=== PATIENT | female | born 1975 | race Caucasian/White ===

== ENCOUNTER 2017-08-15 19:28 | Inpatient (IN) | payer OTHER ==
[~2017-08-15] VITALS: Ht 157.5 cm; Wt 127.3 kg
[2017-08-15] MEDS ORDERED: LAMO150T32 PO (20:03)
[2017-08-15] MEDS ORDERED: PANT40TA PO (20:03)
[2017-08-15] MEDS ORDERED: ONDA4TAB65 PO (20:03)
[2017-08-15] MEDS ORDERED: FLUO20CA35 PO (20:03)
[2017-08-15] MEDS ORDERED: PROP80TA2 PO (20:03)
[2017-08-15] MEDS ORDERED: LEVO75TA5 PO (20:03)
[2017-08-15] MEDS ORDERED: ENOX40IN SQ (20:03)
[2017-08-15] MEDS ORDERED: ASCO500T3 PO (20:03)
[2017-08-15] MEDS ORDERED: FERR325T5 PO (20:03)
[2017-08-15] MEDS ORDERED: QUET1TAB34 PO ×2 (20:03)
[2017-08-15 22:46] VITALS: BP 121/83; PULSE 79; TEMP 37; Ht 157.5 cm; Wt 127.3 kg
[2017-08-15] MEDS ORDERED: hydrOXYzine HCL 25 MG TAB PO PRN (23:00)
[2017-08-15] MEDS ORDERED: ENOXAPARIN 150 MG/1ML SYR SQ SCH (23:00)
[2017-08-15] MEDS ORDERED: ALUMINUM/MAGNESIUM SUSP 30 ML UDC PO PRN (23:00)
[2017-08-15] MEDS ORDERED: ACETAMINOPHEN 325 MG TAB PO PRN (23:00)
[2017-08-15] MEDS ORDERED: MAGNESIUM HYDROXIDE SUSP 30 ML UDC PO PRN (23:00)
[2017-08-15] MEDS ORDERED: SODIUM CHLORIDE 0.65% NA SOLN 45 ML (OCEAN) PRN (23:00)
[2017-08-15] MEDS ORDERED: ONDANSETRON 4 MG TAB PO PRN (23:00)
[2017-08-16] MEDS ORDERED: NURSING VERBAL MED ORDER ONE (00:15)
[2017-08-16] MEDS: ZOLPIDEM TARTRATE 10 MG TAB PO PRN ×2 (00:52→21:58)
[2017-08-16 07:02] VITALS: BP_SYST 111; BP_SYST 112; BP_DIAS 75; BP_DIAS 79; PULSE 87; PULSE 94; TEMP 36.9
[2017-08-16 07:21] LABS: PROTHROMBIN TIME (PATIENT) 10.5 SECONDS (9.0-12.0)
[2017-08-16 07:45] LABS: CREATININE 0.75 mg/dl (0.60-1.20)
[2017-08-16] MEDS: LORAZEPAM 0.5 MG TAB PO PRN ×2 (08:04→13:21)
[2017-08-16] MEDS: LEVOTHYROXINE 75 MCG TAB PO SCH (08:47)
[2017-08-16] MEDS: PROPRANOLOL HCL 80 MG TAB PO SCH (08:48)
[2017-08-16] MEDS: ASCORBIC ACID 500 MG TAB PO SCH ×3 (08:49→21:50)
[2017-08-16] MEDS ORDERED: FLUOXETINE HCL 20 MG CAP PO SCH (09:00)
[2017-08-16] MEDS: ENOXAPARIN 150 MG/1ML SYR SQ SCH ×2 (11:22→21:58)
[2017-08-16] MEDS ORDERED: ZOLP10TA6 PO (12:08)
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
[2017-08-16] MEDS: SUMATRIPTAN SUCCINATE 50 MG TAB PO PRN ×3 (13:25→15:15)
[2017-08-16] MEDS: FERROUS SULFATE 325 MG TAB PO SCH (21:49)
[2017-08-16] MEDS: QUETIAPINE FUMARATE 100 MG TAB PO SCH (21:50)
[2017-08-16] MEDS: PANTOprazole SOD 40 MG TAB PO SCH (21:50)
[2017-08-16] MEDS ORDERED: QUETIAPINE FUMARATE 100 MG TAB PO SCH (22:00)
[2017-08-17 06:51] VITALS: BP_SYST 115; BP_SYST 118; BP_DIAS 81; BP_DIAS 84; PULSE 73; PULSE 87; TEMP 36.8
[2017-08-17 07:17] LABS: HEMATOCRIT 39.2 % (37-47); MEAN CELL VOLUME 92.2 fL (80-100); MEAN CORPUSCULAR HEMOGLOBIN 30.6 pg (25-34); MEAN CORPUSCULAR HGB CONC 33.2 g/dl (32-36); MEAN PLATELET VOLUME 10.1 fL (7.4-10.4); PLATELET COUNT 182 K/uL (130-400); RED BLOOD COUNT 4.25 M/uL (4.2-5.4); WHITE BLOOD COUNT 5.28 K/uL (4.8-10.8)
[2017-08-17 07:54] LABS: CREATININE 0.75 mg/dl (0.60-1.20)
[2017-08-17] MEDS: LEVOTHYROXINE 75 MCG TAB PO SCH (08:26)
[2017-08-17] MEDS: LORAZEPAM 0.5 MG TAB PO PRN ×2 (08:28→13:50)
[2017-08-17] MEDS: PROPRANOLOL HCL 80 MG TAB PO SCH (08:46)
[2017-08-17] MEDS: ASCORBIC ACID 500 MG TAB PO SCH ×3 (08:47→21:30)
[2017-08-17] MEDS: FLUOXETINE HCL 10 MG CAP PO SCH (08:47)
[2017-08-17] MEDS: ENOXAPARIN 150 MG/1ML SYR SQ SCH ×2 (11:02→21:31)
--- NOTE | 2017-08-17 14:05 | Psychiatric Progress Notes ---
Progress Note Date of Service Aug 17, 2017. Interval History 42-year-old white female with a history of mood disorder (she reports a history of bipolar, but does not endorse symptoms consistent with eamon), anxiety, prescription medication abuse, polypharmacy, fibromyalgia, migraines, and multiple other medical problems who presents as a referral from an outside hospital where she was admitted overnight for monitoring after an intentional overdose on approximately 700 mg of Seroquel in the context of pain. Family stated there was a suicide note, but the patient is minimizing this, stating that she was just journaling. She indicates a history of problems with her prescription medications, with frequent episodes of altered mental status and family has also voiced concerns about this. She certainly has an impressive list of controlled substances that she's filled in the past year from 13 different providers, which is of concern. We will need to get collateral from family and OP providers as she is not necessarily forthcoming with information and is giving conflicting reports about her medications, as well as work on a better OP safety plan. Chief Complaint "Good until I had a call with my sister. ". Subjective Patient was seen & assessed interval progress reviewed with Treatment Team. The patient has just come from a phone meeting with her sister. She is tearful as she describes the meeting, saying they talked about Marcelina's relationship with her exfiance. Marcelina feels that her sister wants her to just stop having all feelings for him, but Marcelina says that its not that easy. She has not been talking with her sister about her feelings because they have had a difference of opinion over it. She wants to be able to be honest with her sister and her sister to be honest with her, so she can feel supported. She says that she slept well last night with Ambien and Seroquel. Anxiety today remains high, 7/ 10 with 10 being the highest. She is trying to cope by using coloring, and other distracting activities. Her migraine is tapering off and only took tylenol today. Her fibromyalgia pain is rated 4/10. She is asking about the lyrica rx saying that her neurologist switched her gabapentin to Lyrica, and she 's not sure why, as the gabapentin was working well. She denies SI today. Review of Systems Constitutional: No fever, No chills, No sweats, No weight loss, No weakness, No fatigue, No problem reported ENT: No hearing loss, No unusual epistaxis, No nasal symptoms, No sore throat, No tinnitus, No dental problems, No trouble swallowing, No problem reported Respiratory: No cough, No sputum, No wheezing, No shortness of breath, No dyspnea on exertion, No dyspnea at rest, No hemoptysis, No problem reported Cardiovascular: No chest pain, No orthopnea, No PND, No edema, No claudication , No palpitations, No problem reported Abdomen: No pain, No nausea, No vomiting, No diarrhea, No constipation, No GI bleeding, No problem reported Musculoskeletal: + problem reported (fibromyalgia pain rated 4/10) Neurologic: + problem reported (migraine tapering off) Psychiatric: + depression symptoms, + anxiety Integumentary: No rash, No itch, No new/changing skin lesions, No color change , No bleeding, No problem reported Sleep Information Total Hours of Sleep: 8.00 Meal Information Percent of Breakfast Consumed: 25 Percent of Lunch Consumed: 25 Percent of Dinner Consumed: 100 Mental Status Exam During interview pt is: alert and oriented, cooperative Appearance: appropriately dressed, disheveled, other (obese) Eye contact is: fair Motor behavior is: steady gait & station, no abnormal motor movements Speech: normal in rate, rhythm & volume Affect: mood congruent, depressed, tearful Mood is: depressed, anxious Thought process: goal directed (at times illogical, gives conflicting reports) Thought content: reality based without delusions Suicidal thought are: denied Homicidal thoughts are: denied Hallucinations: denies auditory, denies visual Cognition: memory grossly intact, attention grossly intact, language grossly intact Intelligence estimated to be: average Insight: impaired Judgement: impaired Impression Slept well last night despite tapering dose of seroquel which will go to 100 mg. tonight. We have not received records from her neurologist to help us with the gabapentin versus lyrica questions and so will having nursing call again for records. She is tolerating the increase in prozac without side effect. If not word from neurologists office, recommend starting gabapentin which she has found helpful to fibro in the past and will also serve her anxiety. Plan (1) Intentional overdose of drug in tablet form 08/16 - patient no longer having sequelae from her overdose. Will need a family meeting, and they should work on a plan to limit her access to medications that are dangerous in overdose, as this is a pattern. Recommend all meds be locked and dispensed to her daily. She is very medication focused, requesting multiple controlled substances. I advised her that I would not recommend she be prescribed these types of medications, given concerns for misuse, overdose, addiction, drug-drug interactions as she's on numerous agents, and history of overdoses and altered mental status due to her medications. She denies access to guns. Continue taper off quetiapine which she overdosed on. (2) Depression 08/16 - Although the patient reports a history of bipolar disorder, she does not endorse any symptoms consistent with either eamon or hypomania. I have attempted to contact her outpatient psychiatrist, Dr. Ginger Tolentino, at [facility], but have not been able to reach anyone. Messages were left. We will request records, and we'll continue to try to contact her to coordinate care. - Coordinate with OP therapist. - Increase fluoxetine to 30mg daily to target depression and anxiety symptoms. Monitor for mood destabilization. Continue lamotrigine 150mg bid. - Patient reports chronic insomnia, and was started on zolpidem 10 mg daily at bedtime when necessary when she was discharged from [facility]. I do have some concerns about her having access to this medication given her history, and we will need to discuss this further throughout her stay and see what kind of plan we can come up with with family to keep her safe at home. (3) Anxiety 08/16 - increase fluoxetine as above, offer hydroxyzine as needed for sleep and anxiety, and for now we will continue lorazepam 0.5 mg twice a day when necessary anxiety, which was ordered on admission last night. The patient was explicitly told that this medication is not a safe option for her long-term, and will not be prescribed outside of the hospital. -Encourage her to attend groups, participate in activities, work on healthy coping skills, and behavioral techniques for managing anxiety. (4) Substance abuse Patient has been filling multiple controlled substance prescriptions (20) from 13 different prescribers in the past year, including prescriptions for butalbital, hydrocodone, Lyrica, clonazepam, tramadol, lorazepam, oxycodone, zolpidem, and diazepam. Patient admits that she abuses her Seroquel, taking more than is prescribed to sleep, and has also overdosed on Xanax in the past, and had problems with altered mental status due to polypharmacy and being on multiple controlled substances. I would recommend avoiding any controlled substances, medications that are addictive or abusable, or medications that are dangerous in overdose. For now, we are holding her Flexeril, as she says she takes this for fibromyalgia, which is not an indication and due to concerns that it could contribute to her episodes of altered mental status. We should attempt to get more information from family, as the patient gives conflicting reports about her history, and states that her family was so concerned about her use of medications that they administered to move back home from [place] to "get her meds straightened out. (5) Migraine 08/16 - continue Inderal, acetaminophen as needed, and ondansetron as needed. Order Imitrex 50 mg daily when necessary migraine, may repeat times one if ineffective after 1 hour. Get outpatient records to clarify correct medications and diagnosis. (6) Fibromyalgia 08/16 - patient would benefit from ongoing education about effective treatments for fibromyalgia, including gentle exercise, stretching, and use of heating and ice. She states that she had a trial of Lyrica, but it was ineffective. She has had past trials of gabapentin, and could consider a return to that medication, although would have to be careful of overuse. (7) Hypothyroidism Continue home dose of levothyroxine 75 g daily. (8) Obesity Encourage healthy diet and regular exercise for weight loss. Avoid medications that cause significant weight gain. (9) Pulmonary embolism Per outpatient records, the patient is on Lovenox for history of PE, and we will continue that here. We will get records from her PCP to clarify medical issues and outpatient medications, and ensure timely follow-up. Discharge / Aftercare Planning Primary Care Physician: Name: Dr Gauri Spivey Appointment Notes: as needed Psychiatrist: Name: [place]inger [place] [facility] [place]: Sep 05, 2017 Time of Appointment: 310 Therapist: Name: Sabiha Willis at [facility] Date of Appointment: Aug 16, 2017 Appointment Notes: after discharge from Partial Program [facility] Partial or Psych Rehab: [place] [facility] Date of Appointment: Aug 24, 2017 Time of Appointment: 815 am Appointment Notes: pt will attend Sun from 815 -300 Neurologist: Name: Briana Parsons PA-C Visit Code E&M Code: 70170 Inventory Assets Strengths: Supportive family, stable housing, has OP provider Risk Factors Assessment : Yes /single/: Yes Higher / Fall in social status: No Health problems: Yes Mental Health Diagnoses: Yes Substance use disorders: Yes Previous attempt: Yes Family history of suicide: No Previous psychiatric stay: Yes Hopelessness: No Smoker: No Protective Factors Assessment Moravian beliefs: No : No Responsible for young children: No Employed: No Stable relationships: No Supportive family: Yes Data Vital Signs Last 24 Hrs: Date Time Temp Pulse Resp B/P (MAP) Pulse Ox O2 Delivery O2 Flow Rate FiO2 08/17/17 06:51 36.8 73 16 118/81 87 115/84 Meds Administered Last 24 Hrs: Meds Administered (Past 24Hrs) Medications (Trade) Dose Ordered Sig/Martinez Route Start Time Stop Time Status Last Admin Dose Admin Acetaminophen (Tylenol Tab) 650 mg Q4H PRN PO 08/15/17 23:00 09/14/17 22:59 08/17/17 11:04 650 MG Ascorbic Acid (Vitamin C Tab) 500 mg TID PO 08/16/17 09:00 09/15/17 08:59 08/17/17 08:47 500 MG Enoxaparin Sodium (Lovenox Inj) 129 mg Q12H SQ 08/16/17 11:00 09/15/17 10:59 08/17/17 11:02 129 MG Ferrous Sulfate (Feosol Tab) 325 mg HS PO 08/16/17 22:00 09/15/17 21:59 08/16/17 21:49 325 MG Fluoxetine HCl (Prozac Cap) 20 mg DAILY PO 08/16/17 09:00 08/16/17 12:28 DC 08/16/17 08:48 20 MG Lamotrigine (Lamictal Tab) 150 mg BID PO 08/16/17 09:00 09/15/17 08:59 08/17/17 08:47 150 MG Levothyroxine Sodium (Synthroid Tab) 75 mcg DAILYBB PO 08/16/17 08:00 09/15/17 07:59 08/17/17 08:26 75 MCG Pantoprazole Sodium (Protonix Tab) 40 mg HS PO 08/16/17 22:00 09/15/17 21:59 08/16/17 21:50 40 MG Propranolol HCl (Inderal Tab) 80 mg DAILY PO 08/16/17 09:00 09/15/17 08:59 08/17/17 08:46 80 MG Quetiapine Fumarate (seroQUEL TAB) 200 mg HS PO 08/16/17 22:00 08/16/17 22:00 DC 08/15/17 23:56 200 MG Enoxaparin Sodium (Lovenox Inj) 129 mg TODAY@2300 SQ 08/15/17 23:00 08/15/17 23:59 DC 08/15/17 23:55 129 MG Zolpidem Tartrate (Ambien Tab) 10 mg HSZ PRN PO 08/16/17 00:45 09/15/17 00:44 08/16/17 21:58 10 MG Lorazepam (Ativan Tab) 0.5 mg BID PRN PO 08/16/17 00:45 09/15/17 00:44 08/17/17 08:28 0.5 MG Fluoxetine HCl (Prozac Cap) 30 mg DAILY PO 08/17/17 09:00 09/15/17 08:59 08/17/17 08:47 30 MG Quetiapine Fumarate (seroQUEL TAB) 100 mg Taper HS PO 08/16/17 22:00 08/18/17 21:59 08/16/17 21:50 100 MG Sumatriptan Succinate (Imitrex Tab) 50 mg DAILY PRN PO 08/16/17 13:00 09/15/17 12:59 08/16/17 15:15 50 MG Lab Results Last 24 Hrs: Last 24 Hours Test 08/17/17 07:02 White Blood Count 5.28 K/uL Red Blood Count 4.25 M/uL Hemoglobin 13.0 g/dL Hematocrit 39.2 % Mean Corpuscular Volume 92.2 fL Mean Corpuscular Hemoglobin 30.6 pg Mean Corpuscular Hemoglobin Concent 33.2 g/dl RDW Standard Deviation 52.0 fL RDW Coefficient of Variation 15.5 % Platelet Count 182 K/uL Mean Platelet Volume 10.1 fL Creatinine 0.75 mg/dl Est Creatinine Clear Calc Drug Dose 122.4 ml/min Estimated GFR () 112.4 Estimated GFR (Non- 96.9
[2017-08-17] MEDS: SUMATRIPTAN SUCCINATE 50 MG TAB PO PRN (19:10)
[2017-08-17] MEDS: FERROUS SULFATE 325 MG TAB PO SCH (21:29)
[2017-08-17] MEDS: QUETIAPINE FUMARATE 100 MG TAB PO SCH (21:30)
[2017-08-17] MEDS: PANTOprazole SOD 40 MG TAB PO SCH (21:30)
[2017-08-17] MEDS: ZOLPIDEM TARTRATE 10 MG TAB PO PRN (21:32)
[2017-08-18 06:56] VITALS: BP 116/82; PULSE 80; TEMP 36.5
[2017-08-18] MEDS: LEVOTHYROXINE 75 MCG TAB PO SCH (08:02)
[2017-08-18] MEDS: LORAZEPAM 0.5 MG TAB PO PRN ×2 (08:02→12:57)
[2017-08-18] MEDS: SUMATRIPTAN SUCCINATE 50 MG TAB PO PRN ×2 (09:19→18:07)
[2017-08-18] MEDS: ASCORBIC ACID 500 MG TAB PO SCH ×3 (09:19→22:44)
[2017-08-18] MEDS: PROPRANOLOL HCL 80 MG TAB PO SCH (09:19)
[2017-08-18] MEDS: FLUOXETINE HCL 10 MG CAP PO SCH (09:19)
[2017-08-18 09:37] LABS: CREATININE 0.88 mg/dl (0.60-1.20)
[2017-08-18] MEDS: ENOXAPARIN 150 MG/1ML SYR SQ SCH ×2 (12:58→22:49)
--- NOTE | 2017-08-18 15:07 | Psychiatric Progress Notes ---
Progress Note Date of Service Aug 18, 2017. Interval History 42-year-old white female with a history of mood disorder (she reports a history of bipolar, but does not endorse symptoms consistent with eamon), anxiety, prescription medication abuse, polypharmacy, fibromyalgia, migraines, and multiple other medical problems who presents as a referral from an outside hospital where she was admitted overnight for monitoring after an intentional overdose on approximately 700 mg of Seroquel in the context of pain. Family stated there was a suicide note, but the patient is minimizing this, stating that she was just journaling. She indicates a history of problems with her prescription medications, with frequent episodes of altered mental status and family has also voiced concerns about this. She certainly has an impressive list of controlled substances that she's filled in the past year from 13 different providers, which is of concern. Chief Complaint "I'd like to restart Neurontin". Subjective Patient was seen & assessed interval progress reviewed with Nursing. Had a positive family meeting with sister yesterday. Remains med focussed, already requesting Ativan and Imitrex upon awakening. Currently she states that sleep, anxiety and headaches were better on Neurontin. Staff report that outpatient provider notified unit that would support a retrial of Neurontin. Review of Systems Psych: denies symptoms other than stated above Constitutional: as above Cardiovascular: denied GI: denied Neurologic: as above Remainder of 10 body systems also reviewed and denied other than noted above. Sleep Information Total Hours of Sleep: 7.75 Meal Information Percent of Breakfast Consumed: 0 Percent of Lunch Consumed: 100 Percent of Dinner Consumed: 10 Mental Status Exam During interview pt is: alert and oriented, cooperative Appearance: appropriately dressed, appropriately groomed (but significant hirsuitism (shaves chin)) Eye contact is: fair Motor behavior is: steady gait & station, no abnormal motor movements Speech: normal in rate, rhythm & volume Affect: mood congruent Mood is: depressed, anxious Thought process: concrete Thought content: reality based without delusions Suicidal thought are: denied Homicidal thoughts are: denied Hallucinations: denies auditory, denies visual Cognition: memory grossly intact, attention grossly intact, language grossly intact Intelligence estimated to be: average Insight: limited Judgement: limited Impression 42 yo female, remains med focussed, tolerating increase in Prozac and Seroquel taper. Continued Inpatient Care A private room remains medically necessary for MRSA. Plan (1) Intentional overdose of drug in tablet form 08/16 - patient no longer having sequelae from her overdose. Will need a family meeting, and they should work on a plan to limit her access to medications that are dangerous in overdose, as this is a pattern. Recommend all meds be locked and dispensed to her daily. She is very medication focused, requesting multiple controlled substances. I advised her that I would not recommend she be prescribed these types of medications, given concerns for misuse, overdose, addiction, drug-drug interactions as she's on numerous agents, and history of overdoses and altered mental status due to her medications. She denies access to guns. Continue taper off quetiapine which she overdosed on. 08/18--had family meeting, sister to secure her weapons by Sunday. (2) Depression 08/16 - Although the patient reports a history of bipolar disorder, she does not endorse any symptoms consistent with either eamon or hypomania. I have attempted to contact her outpatient psychiatrist, Dr. Ginger Tolentino, at [facility], but have not been able to reach anyone. Messages were left. We will request records, and we'll continue to try to contact her to coordinate care. - Coordinate with OP therapist. - Increase fluoxetine to 30mg daily to target depression and anxiety symptoms. Monitor for mood destabilization. Continue lamotrigine 150mg bid. - Patient reports chronic insomnia, and was started on zolpidem 10 mg daily at bedtime when necessary when she was discharged from [facility]. I do have some concerns about her having access to this medication given her history, and we will need to discuss this further throughout her stay and see what kind of plan we can come up with with family to keep her safe at home. 08/18--neurontin restart should assist sleep and replace Ambien. (3) Anxiety 08/16 - increase fluoxetine as above, offer hydroxyzine as needed for sleep and anxiety, and for now we will continue lorazepam 0.5 mg twice a day when necessary anxiety, which was ordered on admission last night. The patient was explicitly told that this medication is not a safe option for her long-term, and will not be prescribed outside of the hospital. -Encourage her to attend groups, participate in activities, work on healthy coping skills, and behavioral techniques for managing anxiety. (4) Substance abuse on admit--Patient has been filling multiple controlled substance prescriptions ( 20) from 13 different prescribers in the past year, including prescriptions for butalbital, hydrocodone, Lyrica, clonazepam, tramadol, lorazepam, oxycodone, zolpidem, and diazepam. Patient admits that she abuses her Seroquel, taking more than is prescribed to sleep, and has also overdosed on Xanax in the past, and had problems with altered mental status due to polypharmacy and being on multiple controlled substances. I would recommend avoiding any controlled substances, medications that are addictive or abusable, or medications that are dangerous in overdose. For now, we are holding her Flexeril, as she says she takes this for fibromyalgia, which is not an indication and due to concerns that it could contribute to her episodes of altered mental status. We should attempt to get more information from family, as the patient gives conflicting reports about her history, and states that her family was so concerned about her use of medications that they administered to move back home from [place] to "get her meds straightened out. (5) Migraine 08/16 - continue Inderal, acetaminophen as needed, and ondansetron as needed. Order Imitrex 50 mg daily when necessary migraine, may repeat times one if ineffective after 1 hour. Get outpatient records to clarify correct medications and diagnosis. (6) Fibromyalgia 08/16 - patient would benefit from ongoing education about effective treatments for fibromyalgia, including gentle exercise, stretching, and use of heating and ice. She states that she had a trial of Lyrica, but it was ineffective. She has had past trials of gabapentin, and could consider a return to that medication, although would have to be careful of overuse. 08/18 - restart Neurontin 300 mg daily and 600 mg po qhs; previously took up to 1200 mg BID (7) Hypothyroidism Continue home dose of levothyroxine 75 g daily. (8) Obesity Encourage healthy diet and regular exercise for weight loss. Avoid medications that cause significant weight gain. (9) Pulmonary embolism Per outpatient records, the patient is on Lovenox for history of PE, and we will continue that here. We will get records from her PCP to clarify medical issues and outpatient medications, and ensure timely follow-up. Discharge / Aftercare Planning Primary Care Physician: Name: Dr Gauri Spivey Appointment Notes: as needed Psychiatrist: Name: Ginger Tolentino [facility] [place]ointment: Sep 05, 2017 Time of Appointment: 310 Therapist: Name: Sabiha Willis at [facility] Date of Appointment: Aug 16, 2017 Appointment Notes: after discharge from Partial Program [facility] Partial or Psych Rehab: Name: [facility] in [place] Date of Appointment: Aug 24, 2017 Time of Appointment: 815 am Appointment Notes: pt will attend Sun from 815 -300 Neurologist: Name: Briana Parsons PA-C Visit Code E&M Code: 73126 Inventory Assets Strengths: Supportive family, stable housing, has OP provider Risk Factors Assessment : Yes /single/: Yes Higher / Fall in social status: No Health problems: Yes Mental Health Diagnoses: Yes Substance use disorders: Yes Previous attempt: Yes Family history of suicide: No Previous psychiatric stay: Yes Hopelessness: No Smoker: No Protective Factors Assessment Yazidi beliefs: No : No Responsible for young children: No Employed: No Stable relationships: No Supportive family: Yes Data Vital Signs Last 24 Hrs: Date Time Temp Pulse Resp B/P (MAP) Pulse Ox O2 Delivery O2 Flow Rate FiO2 08/18/17 06:56 36.5 80 16 116/82 Meds Administered Last 24 Hrs: Meds Administered (Past 24Hrs) Medications (Trade) Dose Ordered Sig/Martinez Route Start Time Stop Time Status Last Admin Dose Admin Ferrous Sulfate (Feosol Tab) 325 mg HS PO 08/16/17 22:00 09/15/17 21:59 08/17/17 21:29 325 MG Pantoprazole Sodium (Protonix Tab) 40 mg HS PO 08/16/17 22:00 09/15/17 21:59 08/17/17 21:30 40 MG Quetiapine Fumarate (seroQUEL TAB) 200 mg HS PO 08/16/17 22:00 08/16/17 22:00 DC 08/15/17 23:56 200 MG Fluoxetine HCl (Prozac Cap) 30 mg DAILY PO 08/17/17 09:00 09/15/17 08:59 08/18/17 09:19 30 MG Quetiapine Fumarate (seroQUEL TAB) 50 mg Taper HS PO 08/16/17 22:00 08/18/17 21:59 08/17/17 21:30 50 MG Lab Results Last 24 Hrs: Last 24 Hours Test 08/18/17 08:36 Creatinine 0.88 mg/dl Est Creatinine Clear Calc Drug Dose 104.3 ml/min Estimated GFR () 92.6 Estimated GFR (Non- 79.9
[2017-08-18] MEDS ORDERED: GABAPENTIN 600 MG TAB PO SCH (22:00)
[2017-08-18] MEDS: FERROUS SULFATE 325 MG TAB PO SCH (22:43)
[2017-08-18] MEDS: PANTOprazole SOD 40 MG TAB PO SCH (22:45)
[2017-08-19 06:44] VITALS: BP_SYST 131; BP_SYST 139; BP_DIAS 86; BP_DIAS 90; PULSE 85; PULSE 87; TEMP 37
[2017-08-19] MEDS: LORAZEPAM 0.5 MG TAB PO PRN (06:50)
[2017-08-19] MEDS: LEVOTHYROXINE 75 MCG TAB PO SCH (08:11)
[2017-08-19] MEDS: PROPRANOLOL HCL 80 MG TAB PO SCH (08:51)
[2017-08-19] MEDS: FLUOXETINE HCL 10 MG CAP PO SCH (08:52)
[2017-08-19] MEDS: ASCORBIC ACID 500 MG TAB PO SCH ×3 (08:52→22:14)
[2017-08-19] MEDS ORDERED: GABAPENTIN 300 MG CAP PO SCH ×2 (09:00→22:00)
--- NOTE | 2017-08-19 11:44 | Psychiatric Progress Notes ---
Progress Note Date of Service Aug 19, 2017. Interval History 42-year-old white female with a history of mood disorder (she reports a history of bipolar, but does not endorse symptoms consistent with eamon), anxiety, prescription medication abuse, polypharmacy, fibromyalgia, migraines, and multiple other medical problems who presents as a referral from an outside hospital where she was admitted overnight for monitoring after an intentional overdose on approximately 700 mg of Seroquel in the context of pain. Family stated there was a suicide note, but the patient is minimizing this, stating that she was just journaling. She indicates a history of problems with her prescription medications, with frequent episodes of altered mental status and family has also voiced concerns about this. She certainly has an impressive list of controlled substances that she's filled in the past year from 13 different providers, which is of concern. Chief Complaint "I don't think most of the meds I am on will work". Subjective Patient was seen & assessed interval progress reviewed with Nursing. Tolerated Neurontin restart, remains med focussed re: prozac (only tried 20 mg in past) and mentioned her history of gastic bypass. She still gets anxiety before groups, taking prn Ativan with benefit in am. Reviewed that trying to move away from controlled substances after she asked about her Ambien again. She is agreeable to step down to partial. Review of Systems Psych: denies symptoms other than stated above Constitutional: pain improving Cardiovascular: denied GI: denied Neurologic: denied Remainder of 10 body systems also reviewed and denied other than noted above. Sleep Information Total Hours of Sleep: 6.75 Meal Information Percent of Breakfast Consumed: 8 Percent of Lunch Consumed: 100 Percent of Dinner Consumed: 100 Mental Status Exam During interview pt is: alert and oriented, cooperative Appearance: appropriately dressed, appropriately groomed (but significant hirsuitism (shaves chin)) Eye contact is: fair Motor behavior is: steady gait & station, no abnormal motor movements Speech: normal in rate, rhythm & volume Affect: mood congruent Mood is: anxious Thought process: concrete Thought content: reality based without delusions Suicidal thought are: denied Homicidal thoughts are: denied Hallucinations: denies auditory, denies visual Cognition: memory grossly intact, attention grossly intact, language grossly intact Intelligence estimated to be: average Insight: limited Judgement: limited Impression 42 yo female, remains med focussed, tolerating increase in Prozac and Seroquel taper. Continued Inpatient Care A private room remains medically necessary for MRSA. Plan (1) Intentional overdose of drug in tablet form 08/16 - patient no longer having sequelae from her overdose. Will need a family meeting, and they should work on a plan to limit her access to medications that are dangerous in overdose, as this is a pattern. Recommend all meds be locked and dispensed to her daily. She is very medication focused, requesting multiple controlled substances. I advised her that I would not recommend she be prescribed these types of medications, given concerns for misuse, overdose, addiction, drug-drug interactions as she's on numerous agents, and history of overdoses and altered mental status due to her medications. She denies access to guns. Continue taper off quetiapine which she overdosed on. 08/18--had family meeting, sister to secure her weapons by Sunday. 08/19--agreeable to partial which could start next week (2) Depression 08/16 - Although the patient reports a history of bipolar disorder, she does not endorse any symptoms consistent with either eamon or hypomania. I have attempted to contact her outpatient psychiatrist, Dr. Ginger Tolentino, at [facility], but have not been able to reach anyone. Messages were left. We will request records, and we'll continue to try to contact her to coordinate care. - Coordinate with OP therapist. - Increase fluoxetine to 30mg daily to target depression and anxiety symptoms. Monitor for mood destabilization. Continue lamotrigine 150mg bid. - Patient reports chronic insomnia, and was started on zolpidem 10 mg daily at bedtime when necessary when she was discharged from [facility]. I do have some concerns about her having access to this medication given her history, and we will need to discuss this further throughout her stay and see what kind of plan we can come up with with family to keep her safe at home. 08/18--neurontin restart should assist sleep and replace Ambien. (3) Anxiety 08/16 - increase fluoxetine as above, offer hydroxyzine as needed for sleep and anxiety, and for now we will continue lorazepam 0.5 mg twice a day when necessary anxiety, which was ordered on admission last night. The patient was explicitly told that this medication is not a safe option for her long-term, and will not be prescribed outside of the hospital. -Encourage her to attend groups, participate in activities, work on healthy coping skills, and behavioral techniques for managing anxiety. 08/18--d/c Ativan in favor of trial of Buspar. It is listed on her chart as an allergy but reconfirmed that side effect was confusion, not true immune mediated reaction. Will start 5 mg conservative dosing. (4) Substance abuse on admit--Patient has been filling multiple controlled substance prescriptions ( 20) from 13 different prescribers in the past year, including prescriptions for butalbital, hydrocodone, Lyrica, clonazepam, tramadol, lorazepam, oxycodone, zolpidem, and diazepam. Patient admits that she abuses her Seroquel, taking more than is prescribed to sleep, and has also overdosed on Xanax in the past, and had problems with altered mental status due to polypharmacy and being on multiple controlled substances. I would recommend avoiding any controlled substances, medications that are addictive or abusable, or medications that are dangerous in overdose. For now, we are holding her Flexeril, as she says she takes this for fibromyalgia, which is not an indication and due to concerns that it could contribute to her episodes of altered mental status. We should attempt to get more information from family, as the patient gives conflicting reports about her history, and states that her family was so concerned about her use of medications that they administered to move back home from [place] to "get her meds straightened out. (5) Migraine 08/16 - continue Inderal, acetaminophen as needed, and ondansetron as needed. Order Imitrex 50 mg daily when necessary migraine, may repeat times one if ineffective after 1 hour. Get outpatient records to clarify correct medications and diagnosis. 08/19--Neurontin retrial should address. (6) Fibromyalgia 08/16 - patient would benefit from ongoing education about effective treatments for fibromyalgia, including gentle exercise, stretching, and use of heating and ice. She states that she had a trial of Lyrica, but it was ineffective. She has had past trials of gabapentin, and could consider a return to that medication, although would have to be careful of overuse. 08/18 - restart Neurontin 300 mg daily and 600 mg po qhs; previously took up to 1200 mg BID 08/19--titrate Neurontin to 300 mg PO BID, 900 mg hs (7) Hypothyroidism Continue home dose of levothyroxine 75 g daily. (8) Obesity Encourage healthy diet and regular exercise for weight loss. Avoid medications that cause significant weight gain. (9) Pulmonary embolism Per outpatient records, the patient is on Lovenox for history of PE, and we will continue that here. We will get records from her PCP to clarify medical issues and outpatient medications, and ensure timely follow-up. Discharge / Aftercare Planning Primary Care Physician: Name: Dr Gauri Spivey Appointment Notes: as needed Psychiatrist: [place] Ginger [place] [facility] [place]: Sep 05, 2017 Time of Appointment: 310 Therapist: Name: Sabiha Willis at [facility] Date of Appointment: Aug 16, 2017 Appointment Notes: after discharge from Partial Program [facility] or Psych Rehab: Name: [facility] in [place] Date of Appointment: Aug 24, 2017 Time of Appointment: 815 am Appointment Notes: pt will attend Sun from [phone] -300 Neurologist: Name: Briana Parsons PA-C Visit Code E&M Code: 07625 Inventory Assets Strengths: Supportive family, stable housing, has OP provider Risk Factors Assessment : Yes /single/: Yes Higher / Fall in social status: No Health problems: Yes Mental Health Diagnoses: Yes Substance use disorders: Yes Previous attempt: Yes Family history of suicide: No Previous psychiatric stay: Yes Hopelessness: No Smoker: No Protective Factors Assessment Amish beliefs: No : No Responsible for young children: No Employed: No Stable relationships: No Supportive family: Yes Data Vital Signs Last 24 Hrs: Date Time Temp Pulse Resp B/P (MAP) Pulse Ox O2 Delivery O2 Flow Rate FiO2 08/19/17 06:44 37.0 87 18 139/90 85 131/86 Meds Administered Last 24 Hrs: Meds Administered (Past 24Hrs) Medications (Trade) Dose Ordered Sig/Martinez Route Start Time Stop Time Status Last Admin Dose Admin Gabapentin (Neurontin Cap) 300 mg QAM PO 08/19/17 09:00 08/19/17 10:33 DC 08/19/17 08:51 300 MG Gabapentin (Neurontin Tab) 600 mg HS PO 08/18/17 22:00 08/19/17 10:33 DC 08/18/17 22:44 600 MG
[2017-08-19] MEDS: ENOXAPARIN 150 MG/1ML SYR SQ SCH ×2 (12:14→22:19)
[2017-08-19] MEDS: hydrOXYzine HCL 25 MG TAB PO PRN ×2 (12:18→22:14)
[2017-08-19] MEDS: GABAPENTIN 300 MG CAP PO SCH (16:44)
[2017-08-19] MEDS: FERROUS SULFATE 325 MG TAB PO SCH (22:12)
[2017-08-19] MEDS: PANTOprazole SOD 40 MG TAB PO SCH (22:14)
[2017-08-20] MEDS: hydrOXYzine HCL 25 MG TAB PO PRN (05:09)
[2017-08-20 06:55] VITALS: BP_SYST 124; BP_SYST 132; BP_DIAS 85; BP_DIAS 87; PULSE 108; PULSE 87; TEMP 37
[2017-08-20 07:37] LABS: HEMATOCRIT 39.5 % (37-47); MEAN CELL VOLUME 92.1 fL (80-100); MEAN CORPUSCULAR HGB CONC 33.7 g/dl (32-36); MEAN PLATELET VOLUME 10.4 fL (7.4-10.4); PLATELET COUNT 226 K/uL (130-400); RED BLOOD COUNT 4.29 M/uL (4.2-5.4); WHITE BLOOD COUNT 4.85 K/uL (4.8-10.8)
[2017-08-20] MEDS: LEVOTHYROXINE 75 MCG TAB PO SCH (08:04)
[2017-08-20 08:05] LABS: CREATININE 0.75 mg/dl (0.60-1.20)
[2017-08-20] MEDS: PROPRANOLOL HCL 80 MG TAB PO SCH ×2 (08:35→10:32)
[2017-08-20] MEDS: GABAPENTIN 300 MG CAP PO SCH (08:36)
[2017-08-20] MEDS: ASCORBIC ACID 500 MG TAB PO SCH ×2 (08:38→13:14)
[2017-08-20] MEDS ORDERED: FLUOXETINE HCL 20 MG CAP PO SCH (09:00)
[2017-08-20] MEDS ORDERED: BSP5 PO (09:16)
[2017-08-20] MEDS ORDERED: FLUO40CA8 PO (09:16)
[2017-08-20] MEDS ORDERED: NRN300 PO ×2 (09:16)
--- NOTE | 2017-08-20 09:43 | Discharge Instructions ---
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 examination of the patient, discharge planning, medication reconciliation Tobacco Cessation at Discharge Smoking Status: Never Smoker FDA approved Prescription: non-smoker
[2017-08-20] MEDS: ENOXAPARIN 150 MG/1ML SYR SQ SCH (10:32)
== END 2017-08-20 15:40 | disposition home or self-care (01) | DRG 918 ==
LOC: C.MHU 21:47
PROVIDERS: ADMIT Psychiatry & Neurology Psychiatry; ATTEND Psychiatry & Neurology Psychiatry
DX: T50.992A Poisoning by other drugs, medicaments and biological substances, intentional self-harm, initial encounter (principal); M79.7 Fibromyalgia; F32.9 Major depressive disorder, single episode, unspecified; F55.8 Abuse of other non-psychoactive substances; E03.9 Hypothyroidism, unspecified; G47.00 Insomnia, unspecified; E66.9 Obesity, unspecified; Z79.01 Long term (current) use of anticoagulants; Z86.711 Personal history of pulmonary embolism